=== PATIENT | female | born 1960 | race Caucasian/White ===

== ENCOUNTER 2024-09-04 18:05 | Emergency (ER) | payer SELFPAY ==
--- OUTSIDE RECORDS SUMMARY | 2024-09-04 18:09 | XMS REPORT | Continuity of Care Document ---
Author Name Unknown Address [address] [facility] [address] [place] [address] [facility] Address [address] [facility] [address] [place] [address] Care Team Providers Care Equipment Operator/Laborer Name Role Phone [email or web address] Attending Clinician Unavailable hawk_a Admitting Clinician Unavailable Payers Payer Name Policy Type Policy Number Effective Date Expirati on Date Source Problems Condition Name Condition Details Condition Category Status Onset Date Resolution Date Last Treatment Date Treating Clinician Comments Source Essential hypertensi on Essential Hypertensi on Problem Active - 00:00: 00 [facility] Chronic obstructiv e pulmonary disease Chronic Obstructiv e Pulmonary Disease Problem Active - 00:00: 00 [facility] Low back pain Low Back Pain Problem Active - 00:00: 00 [facility] Pain in right lower limb Pain in Right Lower Limb Problem Active 3- 00:00: 00 [facility] Moderate chronic obstructiv e pulmonary disease Moderate Chronic Obstructiv e Pulmonary Disease Problem Active 5-30 00:00: 00 [facility] Social History Smoking Status Start Date Stop Date Source Heavy Tobacco Smoker [facility] Medications Ordered Medication Name Filled Medication Name Start Date Stop Date Current Medication? Ordering Clinician Indication Dosage Frequency Signature (SIG) Comments Components Source Combivent Respimat 20 mcg-100 mcg/actuati on solution for inhalation Inhale 1 puff 4 times a day by inhalation route as needed. Combivent Respimat 20 mcg-100 mcg/actuati on solution for inhalation Inhale 1 puff 4 times a day by inhalation route as needed. No 1puff(s ) QID Combivent Respimat 20 mcg-100 mcg/actuat ion solution for inhalation Inhale 1 puff 4 times a day by inhalation route as needed. [facility] tizanidine 4 mg tablet Take 1 tablet every 6 hours by oral route. tizanidine 4 mg tablet Take 1 tablet every 6 hours by oral route. No 1 Q6H tizanidine 4 mg tablet Take 1 tablet every 6 hours by oral route. [facility] Vital Signs Vital Name Observation Time Observation Value Comments S ource BP Systolic 2024-08-31 00:00:00 150 mm[Hg] [facility] BP Diastolic 2024-08-31 00:00:00 90 mm[Hg] [facility] BMI (Body Mass Index) 2024-08-31 00:00:00 23.7 kg/m2 [facility] Height 2024-08-31 00:00:00 68 [in_i] [facility] Body Weight 2024-08-31 00:00:00 2499.2 [oz_av] [facility] Procedures Procedure Date / Time Performed Performing Clinician Source XR, lumbar spine, 2 view 2024-08-31 00:00:00 [facility] Cholecystectomy 2023-05-27 00:00:00 [facility] Cystoscopy [facility] To[facility] [employer] [facility] Total Hysterectomy [facility] Encounters Start Date/Time End Date/Time Encounter Type Admission Type Attending Clinicians Care Facility Care Department Encounter ID Source 2024-08-31 00:00:00 2024-08-31 00:00:00 Ruma Hsu MD: Esper[address]sat[address], [address] [place] [address] , Ph. [facility] CLINIC, [address] HSU [id number] [place] [address] 2020-05-11 02:36:00 2020-05-11 02:36:00 Outpatient sarina [facility] [id number] [facility]
[2024-09-04 19:11] LABS: Absolute Lymphocytes (CBC) 0.7 K/uL (0.7-4.9); Absolute Monocytes 0.4 K/uL (0.1-1.3); Absolute Neutrophil 4.8 K/uL (1.8-8.0); Basophils % 0.4 % (0-1.3); Eosinophils % 0.1 % (0-4.4); Hematocrit 44.1 % (36.0-45.0); Hemoglobin 15.2 g/dL (12.0-15.0); Lymphocytes % 11.7 % (15.3-44.8); MCH 31.2 pg (27.0-35.0); MCHC 34.5 g/dL (32.0-36.0); MCV 90.4 fL (80-100); Monocytes % 6.2 % (3.3-12.3); Neutrophils % 81.6 % (41.7-73.7); Platelets 217 thou/uL (152-406); RBC Red Blood Cell Count 4.88 M/uL (3.86-4.86); Red Cell Distribution Width 14.3 % (12.1-15.2)
[2024-09-04 19:16] LABS: PT Prothrombin Time 11.4 SECONDS (10-13.0)
[2024-09-04 19:16] LABS: Specific Gravity 1.013 (1.005-1.030); Sqamous Epithelial <5 /HPF (None Seen); Urine Bacteria None Seen /HPF (<20); Urine Bilirubin NEGATIVE (Negative); Urine Blood 1+ (Negative); Urine Clarity Clear (Clear); Urine Color Light-Yellow (Yellow); Urine Crystals Unidentified Few /HPF (None Seen); Urine Culture Reflex Order NOT NEEDED; Urine Glucose NEGATIVE (Negative); Urine Ketones NEGATIVE (Negative); Urine Micro Reflex YN NO BILL MICROSCOPIC; Urine Mucus Slight /HPF (None Seen); Urine Nitrite NEGATIVE (Negative); Urine Protein NEGATIVE (Negative); Urine RBC <5 /HPF (None Seen); Urine Urobilinogen Normal (Normal); Urine WBC <5 /HPF (<5)
[2024-09-04 19:20] LABS: Influenza A Ag Negative; Influenza B Ag Negative; SARS-CoV-2 Antigen Rapid Res Negative (Negative)
[2024-09-04 19:31] LABS: ALT/SGPT 50 U/L (13-56); AST/SGOT 46 U/L (15-37); Albumin 3.7 g/dL (3.4-5.0); Albumin/Globulin Ratio 0.9 (1.1-1.8); Alkaline Phosphatase 74 U/L (45-117); Anion Gap 6.5 mEq/L (5.0-15.0); BUN Blood Urea Nitrogen 16 mg/dL (7-18); Bicarbonate 27 mEq/L (21-32); Bilirubin Total 0.3 mg/dL (0.2-1.0); Glomerular Filtration Rate 63 ml/min (=/>90); Glucose Level 99 mg/dL (74-106); Magnesium 2.1 mg/dL (1.6-2.4); Potassium 3.5 mEq/L (3.5-5.1); Protein, Total 7.7 g/dL (6.4-8.2); Sodium Level 135 mEq/L (136-145)
[2024-09-04 19:34] LABS: Bilirubin Direct < 0.2 mg/dL (0-0.2); Bilirubin Indirect, Calculated 0.1 mg/dL (0.2-0.8); Troponin High Sensitivity < 3.0 pg/mL (<58.9)
[2024-09-04] MEDS ORDERED: KETOROLAC 30 MG/ML INJ ONE (19:53)
--- NOTE | 2024-09-04 19:58 | RAD REPORT ---
EXAMINATION: TWO VIEW CHEST XR CLINICAL INDICATION: Female, 64 years old. [facility] MAIN COUGH Bed Name: 3 TECHNIQUE: 2 view radiographs of the chest were performed. COMPARISON: No prior exam. FINDINGS: The lungs are well inflated and clear. No pneumothorax or sizable effusion. The heart is normal in si ze. Mediastinal contours are unremarkable. IMPRESSION: No acute or significant abnormalities.
[2024-09-04] MEDS ORDERED: METHOCARBAMOL 1,000 MG/10 ML VIAL ONE (20:52)
[2024-09-04] MEDS ORDERED: NA CHLORIDE 0.9% 100 ML ONE (20:52)
--- NOTE | 2024-09-04 20:55 | RAD REPORT ---
EXAMINATION: CT Abdomen Pelvis W Contrast CLINICAL INDICATION: Female, 64 years old. right flank pain TECHNIQUE: CT abdomen and pelvis was performed, after the administration of IV contrast, as per [facility] protocol. Axial, sagittal and coronal reconstructions were obtained. One or more of the following dose reduction techniques were used: Automated exposure control, adjustment of the mA and k V according to patient size, and iterative reconstruction. Unless otherwise specified, incidental findings do not require dedicated imaging follow-up. COMPARISON: No prior exam. FINDINGS: LOWER CHEST: The visualized lung bases are clear. LIVER: Normal in size and contour. No focal lesion. BILIARY SYSTEM: No suspicious abnormalities. SPLEEN: Normal size. No focal lesion. PANCREAS: No mass, ductal dilation, or sukumar-pancreatic fluid. ADRENALS: Normal; no mass. KIDNEYS: Normal size and contour. 5 mm calculus along the proximal right ureter. No hydronephrosis. URINARY BLADDER: Unremarkable. GASTROINTESTINAL TRACT: No evidence of free air, significant intra-abdominal free fluid, bowel obstru ction or abscess. APPENDIX: Normal appendix. LYMPH NODES: No lymphadenopathy. MUSCULOSKELETAL: No acute or suspicious osseous abnormality. ADDITIONAL FINDINGS: None. IMPRESSION: Right proximal ureter 5 mm calculus, without hydroureteronephrosis. No other acute findings.
--- NOTE | 2024-09-04 21:20 | EDPHYS ---
Physician Documentation [facility] Name: Christi Linares Age: 64 yrs Sex: Female : 1960 Arrival Date: 09/04/2024 Time: 18:05 Bed 20 Private MD: ED Physician Odilon Del Valle HPI: 09/04 18:35 This 64 yrs old Female presents to ER via Ambulatory with complaints of Flu Symptoms. cp 18:35 The patient presents with pain that is acute, with no known mechanism of injury. The cp symptoms are located in the right flank and right mid back. 18:35 Onset: The symptoms/episode began/occurred gradually. intermittent to right leg. cp Associated signs and symptoms: Pertinent positives: bladder incontinence, fatigue, chills, reports not feeling well over past 3 days, Pertinent negatives: chest pain, constipation, dysuria, fever. Severity of symptoms: in the emergency department the symptoms are unchanged, despite home interventions. Historical: - Allergies: 18:21 No Known Allergies; ld1 - Home Meds: 18:21 None [Active]; ld1 - PMHx: 18:21 None; ld1 - PSHx: 18:21 None; ld1 - Immunization history:: Adult Immunizations up to date. - Infectious Disease History:: Denies. - Social history:: Smoking status: Patient reports the use of cigarette tobacco products, smokes one-half pack cigarettes per day. ROS: 18:40 Constitutional: Positive for body aches, fever, Negative for poor PO intake, cp 18:40 Eyes: Negative for injury, pain, redness, and discharge, cp 18:40 ENT: Negative for drainage from ear(s), ear pain, sore throat, difficulty swallowing, difficulty handling secretions, 18:40 Cardiovascular: Negative for chest pain, edema, palpitations, 18:40 Respiratory: Negative for cough, shortness of breath, wheezing, 18:40 Abdomen/GI: Positive for nausea, Negative for vomiting, diarrhea, constipation, 18:40 Back: Positive for pain at rest, pain with movement, flank pain, on the right, radiated pain, 18:40 : Positive for bladder incontinence Negative for hematuria, 18:40 Neuro: Positive for weakness, Negative for altered mental status, 18:40 All other systems are negative, Exam: 18:45 Constitutional: The patient appears in no acute distress, alert, awake, cp non-diaphoretic, non-toxic, well developed, well nourished, 18:45 Head/Face: Normocephalic, atraumatic. cp 18:45 Eyes: Periorbital structures: appear normal, Conjunctiva: normal, no exudate, no injection, Sclera: no appreciated abnormality, Lids and lashes: appear normal, bilaterally, 18:45 ENT: External ear(s): are unremarkable, Nose: is normal, Mouth: Lips: moist, Oral mucosa: pink and intact, moist, Posterior pharynx: Airway: no evidence of obstruction, patent, Tonsils: no enlargement, no exudate, erythema, is not appreciated, exudate, is not appreciated, 18:45 Neck: ROM/movement: is normal, is supple, without pain, no range of motions limitations, no meningismus, 18:45 Chest/axilla: Inspection: normal, 18:45 Cardiovascular: Rate: normal, Rhythm: regular, Edema: is not appreciated, JVD: is not appreciated, 18:45 Respiratory: the patient does not display signs of respiratory distress, Respirations: normal, no use of accessory muscles, no retractions, labored breathing, is not present, Breath sounds: are clear throughout, no decreased breath sounds, no stridor, no wheezing, 18:45 Abdomen/GI: Inspection: abdomen appears normal, Bowel sounds: active, all quadrants, Palpation: soft, in all quadrants, moderate abdominal tenderness, in the posterior aspect of right lateral abdomen and anterior aspect of right lateral abdomen, 18:45 Back: ROM is normal, 18:45 Skin: cellulitis, is not appreciated, no rash present. 18:45 Neuro: Orientation: to person, place \T\ time. Mentation: is normal, Motor: moves all fours, strength is normal, Sensation: no obvious gross deficits, Gait: is steady, at a normal pace, without difficulty, 19:17 ECG was reviewed by the Attending Physician. cp Vital Signs: 18:21 BP 158 / 89; Pulse 83; Resp 18; Temp 98(O); Pulse Ox 100% on R/A; Weight 69.4 kg; ld1 Height 5 ft. 6 in. ; Pain 0/10; 19:30 BP 135 / 85; Pulse 81; Resp 17; Temp 98; Pulse Ox 99% on R/A; Pain 6/10; rg5 21:30 BP 138 / 79; Pulse 84; Resp 17; Pulse Ox 99% on R/A; Pain 0/10; rg5 18:21 Body Mass Index 24.69 (69.40 kg, 167.64 cm) ld1 18:21 Pain Scale: Adult ld1 19:30 Pain Scale: Adult rg5 21:30 Pain Scale: Adult rg5 MDM: 18:28 Medical Screening Exam initiated cp 21:20 Data reviewed: vital signs, nurses notes, lab test result(s), EKG, radiologic studies, cp CT scan, plain films, and as a result, I will discharge patient. 21:20 Differential diagnosis: chronic back pain, Pyelonephritis Ureterolithiasis sepsis. I cp considered the following discharge prescriptions or medication management in the emergency department Medications were administered in the Emergency Department. See MAR. Independent interpretation of the following test(s) in the Emergency Department EKG: See my EKG interpretation above. Counseling: I had a detailed discussion with the patient and/or guardian regarding the historical points, exam findings, and any diagnostic results supporting the discharge/admit diagnosis, lab results, radiology results, the need for outpatient follow up, a urologist, to return to the emergency department if symptoms worsen or persist or if there are any questions or concerns that arise at home. Response to treatment: the patient's symptoms have mildly improved after treatment, and as a result, I will discharge patient. 09/04 18:29 Order name: Basic Metabolic Panel; Complete Time: 19:37 cp 09/04 19:37 Interpretation: Normal except: NA 135; GFR 63. cp 09/04 18:29 Order name: CBC with Diff; Complete Time: 19:37 cp 09/04 19:37 Interpretation: Normal except: RBC 4.88; HGB 15.2; SHELLI% 81.6; LYM% 11.7. cp 09/04 18:29 Order name: LFT's; Complete Time: 19:37 cp 09/04 19:37 Interpretation: Normal except: AST 46; IBILI, CALC 0.1; GLOB 4.0; A/G 0.9. cp 09/04 18:29 Order name: Magnesium; Complete Time: 19:37 cp 09/04 18:29 Order name: PT-INR; Complete Time: 19:37 cp 09/04 18:29 Order name: Troponin HS; Complete Time: 19:37 cp 09/04 18:29 Order name: COVID-19 Ag + Flu A+B Ag; Complete Time: 19:37 cp 09/04 18:30 Order name: Urinalysis W/Microscopic; Complete Time: 19:37 cp 09/04 19:37 Interpretation: Normal except: UBLD 1+. cp 09/04 18:29 Order name: XRAY Chest Pa And Lat (2 Views); Complete Time: 20:37 cp 09/04 20:38 Interpretation: No acute disease: Report reviewed. 09/04 19:42 Order name: CT Abd/Pelvis - IV Contrast Only; Complete Time: 21:10 09/04 21:11 Interpretation: Report reviewed. 09/04 18:29 Order name: Cardiac monitoring; Complete Time: 19:14 cp 09/04 18:29 Order name: EKG - Nurse/Tech; Complete Time: 19:14 cp 09/04 18:29 Order name: IV Saline Lock; Complete Time: 19:00 09/04 18:29 Order name: Labs collected and sent; Complete Time: 19:00 cp 09/04 18:29 Order name: O2 Per Protocol; Complete Time: 19:00 cp 09/04 18:29 Order name: O2 Sat Monitoring; Complete Time: 19:00 cp EC:17 Rate is 79 beats/min. Rhythm is regular. HI interval is normal. QRS interval is cp prolonged at 130 msec. QT interval is normal. T waves are Inverted in leads aVR, V2. Interpreted by me. Reviewed by me. Administered Medications: 20:00 Drug: Ketorolac IVP 15 mg IVP once Route: IVP; Site: right antecubital; rg5 21:54 Follow up: Response: No adverse reaction; Pain is decreased rg5 21:00 Drug: Methocarbamol IVPB 1 grams IVPB once over 1 hrs; (mix in NS 100 mL) Route: IVPB; rg5 Infused Over: 1 hrs; Site: right antecubital; 21:30 Follow up: IV Status: Completed infusion; IV Intake: 100ml rg5 21:42 Drug: Flomax PO 0.4 mg PO once Route: PO; rg5 21:57 Follow up: Response: No adverse reaction rg5 21:42 Drug: Rocephin IV 1 grams IV at calculated rate once; Given slow IV push per pharmacy rg5 instructions Route: IV; Rate: calculated rate; Site: right antecubital; 21:42 Follow up: IV Status: Completed infusion; IV Intake: 20ml rg5 Disposition: 09/05 21:31 Chart complete. cp Disposition Summary: 09/04/24 21:20 Discharge Ordered Notes: Location: Home cp Problem: new cp Symptoms: have improved cp Condition: Stable cp Diagnosis - Dorsalgia, unspecified cp - Calculus of ureter - right cp Followup: cp - With: Zach Aguirre MD - When: 5 - 6 days - Reason: Recheck today's complaints Discharge Instructions: - Discharge Summary Sheet cp - Kidney Stones cp - Musculoskeletal Pain cp - Renal Colic cp - Lithotripsy cp - Back Exercises cp Forms: - Medication Reconciliation Form cp - Antibiotic Education cp - Prescription Opioid Use cp - Patient Portal Instructions cp - Leadership Thank You Letter cp Prescriptions: - Flomax 0.4 mg Oral capsule - take 1 capsule ORAL route daily; 7 capsule; Refills: 0, Product Selection cp Permitted - Cipro 250 mg Oral tablet - take 1 tablet ORAL route every 12 hours for 7 days; 14 tablet; Refills: 0, cp Product Selection Permitted - Ibuprofen 800 mg Oral Tablet - take 1 tablet ORAL route every 8 hours As needed take with food; 30 tablet; cp Refills: 0, Product Selection Permitted - Zofran 4 mg Oral Tablet - take 1 tablet ORAL route every 12 hours As needed; 20 tablet; Refills: 0, cp Product Selection Permitted Signatures: Dispatcher [employer] EDMS Cortez Ragland PA PA cp Jackie Meneses RN RN ld1 John Mendoza RN RN rg5 Corrections: (The following items were deleted from the chart) 09/04 18:29 18:29 BASIC METABOLIC PANEL+C.LAB.BRZ ordered. EDMS EDMS 18:29 18:29 CBC+H.LAB.BRZ ordered. EDMS EDMS 18:29 18:29 HEPATIC FUNCTION+C.LAB.BRZ ordered. EDMS EDMS 18:29 18:29 MAGNESIUM+C.LAB.BRZ ordered. EDMS EDMS 18:29 18:29 PROTIME (+INR)+COAG.LAB.BRZ ordered. EDMS EDMS 18:29 18:29 Troponin High Sensitivity+C.LAB.BRZ ordered. EDMS EDMS 18:29 COVID-19 Ag + Flu A+B Ag+I.LAB.BRZ ordered. EDMS EDMS 30 18:29 Chest Pa And Lat (2 Views)+RAD.RAD.BRZ ordered. EDMS EDMS
--- NOTE | 2024-09-04 21:20 | ER ---
Nurse's Notes [facility] Name: Christi Linares Age: 64 yrs Sex: Female : 1960 Arrival Date: 09/04/2024 Time: 18:05 Bed 20 Private MD: Diagnosis: Dorsalgia, unspecified;Calculus of ureter-right Presentation: 09/04 18:21 Chief complaint: Patient states: Not feeling well. Pt reports feeling fatigue, hot/cold ld1 chills. Pt reports nausea and incontinence X 3 days. Coronavirus screen: At this time, the client does not indicate any symptoms associated with coronavirus-19. Ebola Screen: No symptoms or risks identified at this time. Initial Sepsis Screen: Does the patient meet any 2 criteria? No. Patient's initial sepsis screen is negative. Does the patient have a suspected source of infection? No. Patient's initial sepsis screen is negative. Risk Assessment: Do you want to hurt yourself or someone else? Patient reports no desire to harm self or others. Onset of symptoms was September 04, 2024. 18:21 Method Of Arrival: Ambulatory ld1 18:21 Acuity: PHONG 4 ld1 Triage Assessment: 18:21 General: Appears in no apparent distress. comfortable, Behavior is calm, cooperative, ld1 appropriate for age. Pain: Denies pain. EENT: No signs and/or symptoms were reported regarding the EENT system. Neuro: Level of Consciousness is awake, alert, obeys commands, Oriented to person, place, time, situation. Cardiovascular: Capillary refill < 3 seconds Patient's skin is warm and dry. Respiratory: Airway is patent Respiratory effort is even, unlabored. GI: Abdomen is flat, non-distended. : No signs and/or symptoms were reported regarding the genitourinary system. Derm: Skin temperature is cool. Musculoskeletal: No signs and/or symptoms reported regarding the musculoskeletal system. Historical: - Allergies: 18:21 No Known Allergies; ld1 - Home Meds: 18:21 None [Active]; ld1 - PMHx: 18:21 None; ld1 - PSHx: 18:21 None; ld1 - Immunization history:: Adult Immunizations up to date. - Infectious Disease History:: Denies. - Social history:: Smoking status: Patient reports the use of cigarette tobacco products, smokes one-half pack cigarettes per day. Screenin:45 [facility] ED Fall Risk Assessment (Adult) History of falling in the last 3 months, me1 including since admission No falls in past 3 months (0 pts) Confusion or Disorientation No (0 pts) Intoxicated or Sedated No (0 pts) Impaired Gait No (0 pts) Mobility Assist Device Used No (0 pt) Altered Elimination No (0 pt) Score/Fall Risk Level 0 - 2 = Low Risk Maintained a safe environment, Provided non-skid footwear, Hourly rounding (assess needs \T\ fall precautionary measures) done. Abuse screen: Denies threats or abuse. Nutritional screening: No deficits noted. Tuberculosis screening: No symptoms or risk factors identified. Assessment: 18:45 General: Appears uncomfortable, ill, Behavior is calm, cooperative, appropriate for me1 age, Reports Not feeling well. Pt reports feeling fatigue, hot/cold chills. Pt reports nausea and incontinence X 3 days. Pain: Denies pain. Neuro: Level of Consciousness is awake, alert, obeys commands, Oriented to person, place, time, situation, Appropriate for age. Cardiovascular: Patient's skin is warm and dry. Respiratory: Airway is patent Respiratory effort is even, unlabored, Respiratory pattern is regular, symmetrical. GI: Reports nausea, since 3 days ago. : Reports incontinence, since 3 days ago. EENT: No signs and/or symptoms were reported regarding the EENT system. Derm: Skin is intact, is healthy with good turgor, Skin is normal. Musculoskeletal: No signs and/or symptoms reported regarding the musculoskeletal system. Vital Signs: 18:21 BP 158 / 89; Pulse 83; Resp 18; Temp 98(O); Pulse Ox 100% on R/A; Weight 69.4 kg; ld1 Height 5 ft. 6 in. ; Pain 0/10; 19:30 BP 135 / 85; Pulse 81; Resp 17; Temp 98; Pulse Ox 99% on R/A; Pain 6/10; rg5 21:30 BP 138 / 79; Pulse 84; Resp 17; Pulse Ox 99% on R/A; Pain 0/10; rg5 18:21 Body Mass Index 24.69 (69.40 kg, 167.64 cm) ld1 18:21 Pain Scale: Adult ld1 19:30 Pain Scale: Adult rg5 21:30 Pain Scale: Adult rg5 ED Course: 18:08 Patient arrived in ED. al6 18:16 Cortez Ragland PA is PHCP. cp 18:16 Odilon Del Valle MD is Attending Physician. cp 18:21 Arm band placed on right wrist. ld1 18:22 Triage completed. ld1 18:39 Nahomy Millard, RN is Primary Nurse. me1 18:45 Patient has correct armband on for positive identification. Bed in low position. Call nc1 light in reach. Side rails up X 1. Provided Education on: POC. Verbalized understanding.. Client placed on continuous cardiac and pulse oximetry monitoring. NIBP monitoring applied. insurance licensing supervisor on. Pulse ox on. NIBP on. 18:45 No provider procedures requiring assistance completed. me1 18:49 XRAY Chest Pa And Lat (2 Views) In Process Unspecified. EDMS 19:00 Initial lab(s) drawn, by nc, sent to lab. Inserted saline lock: 22 gauge in right [facility] antecubital area, using aseptic technique. 19:00 COVID-19 Ag + Flu A+B Ag Sent. me1 19:00 Basic Metabolic Panel Sent. me1 19:00 CBC with Diff Sent. me1 19:00 LFT's Sent. me1 19:00 Magnesium Sent. me1 19:00 PT-INR Sent. me1 19:00 Troponin HS Sent. me1 19:14 EKG done, by electronic warfare technician. af3 19:59 CT Abd/Pelvis - IV Contrast Only In Process Unspecified. EDMS 21:19 Zach Aguirre MD is Referral Physician. cp 21:56 IV discontinued, bleeding controlled, No redness/swelling at site. Pressure dressing rg5 applied. Administered Medications: 20:00 Drug: Ketorolac IVP 15 mg IVP once Route: IVP; Site: right antecubital; rg5 21:54 Follow up: Response: No adverse reaction; Pain is decreased rg5 21:00 Drug: Methocarbamol IVPB 1 grams IVPB once over 1 hrs; (mix in NS 100 mL) Route: IVPB; rg5 Infused Over: 1 hrs; Site: right antecubital; 21:30 Follow up: IV Status: Completed infusion; IV Intake: 100ml rg5 21:42 Drug: Flomax PO 0.4 mg PO once Route: PO; rg5 21:57 Follow up: Response: No adverse reaction rg5 21:42 Drug: Rocephin IV 1 grams IV at calculated rate once; Given slow IV push per pharmacy rg5 instructions Route: IV; Rate: calculated rate; Site: right antecubital; 21:42 Follow up: IV Status: Completed infusion; IV Intake: 20ml rg5 Medication: 18:45 VIS not applicable for this client. me1 Intake: 21:30 IV: 100ml; Total: 100ml. rg5 21:42 IV: 20ml; Total: 120ml. rg5 Outcome: 21:20 Discharge ordered by MD. cp 21:56 Discharged to home ambulatory, rg5 21:56 Condition: stable 21:56 Discharge instructions given to patient, family, Instructed on discharge instructions, follow up and referral plans. Demonstrated understanding of instructions, follow-up care, Prescriptions given X 4, 21:57 Patient left the ED. rg5 Signatures: Dispatcher [employer] EDMS Cortez Ragland PA PA cp Jackie Meneses RN RN ld1 Nahomy Millard RN RN me1 John Mendoza RN RN rg5 Herlinda Black af3 Hiral Zhang6 Corrections: (The following items were deleted from the chart) 18:24 18:21 Chief complaint: Patient states: Not feeling well. Pt reports feeling fatigue, ld1 hot/cold chills. ld1 18:48 18:21 Chief complaint: Patient states: Not feeling well. Pt reports feeling fatigue, me1 hot/cold chills. Pt reports nausea and incontinence X 3 days ld1 19:05 18:21 Chief complaint: Patient states: Not feeling well. Pt reports feeling fatigue, me1 hot/cold chills. Pt reports nausea and incontinence X 3 days me1
[2024-09-04] MEDS ORDERED: CEFTRIAXONE 1000 MG/VIAL ONE (21:44)
[2024-09-04] MEDS ORDERED: TAMSULOSIN 0.4 MG SR CAP ONE (21:44)
[2024-09-04 22:08] VITALS: TEMP 98
[2024-09-04 22:09] VITALS: O2SAT 99
[2024-09-04 22:10] VITALS: BP 138/79
== END 2024-09-04 21:57 | disposition home or self-care (01) ==
LOC: ER 18:05
DX: M54.9 Dorsalgia, unspecified (principal); N20.1 Calculus of ureter; Z72.0 Tobacco use
CPT/HCPCS: 36415; 71046; 74177; 80048; 80076; 81001; 83735; 84484; 85025; 85610; 87428; 93005; 96365; 96375; 99285; J0696; J2800; Q9967

== ENCOUNTER 2024-11-06 11:50 | Emergency (ER) | payer OTHER ==
--- NOTE | 2024-11-06 14:29 | RAD REPORT ---
EXAM: Chest Single View HISTORY: 64 years Female weakness COMPARISON: 09/04/2024 FINDINGS: LUNGS/PLEURA: The lungs are clear. No pleural effusions or pneumothorax. No pulmonary edema. CARDIAC/MEDIASTINUM: The cardiac silhouette is within normal limits. UPPER ABDOMEN: No significant abnormality. BONES: No acute abnormality. LINES/TUBES/OTHER: N/A IMPRESSION: No evidence of acute cardiopulmonary disease. No significant change from prior.
[2024-11-06 15:12] LABS: Absolute Basophils 0.1 K/uL (0-0.5); Absolute Lymphocytes (CBC) 1.8 K/uL (0.7-4.9); Absolute Monocytes 1.2 K/uL (0.1-1.3); Absolute Neutrophil 7.4 K/uL (1.8-8.0); Basophils % 0.6 % (0-1.3); Eosinophils % 0.4 % (0-4.4); Hematocrit 41.4 % (36.0-45.0); Hemoglobin 14.2 g/dL (12.0-15.0); Lymphocytes % 17.5 % (15.3-44.8); MCH 31.5 pg (27.0-35.0); MCHC 34.4 g/dL (32.0-36.0); MCV 91.6 fL (80-100); MPV 8.2 fL (7.6-11.3); Neutrophils % 70.5 % (41.7-73.7); Platelets 285 thou/uL (152-406); RBC Red Blood Cell Count 4.52 M/uL (3.86-4.86); Red Cell Distribution Width 15.1 % (12.1-15.2)
[2024-11-06 15:26] LABS: ALT/SGPT 18 U/L (13-56); Albumin 3.7 g/dL (3.4-5.0); Albumin/Globulin Ratio 0.9 (1.1-1.8); Alkaline Phosphatase 67 U/L (45-117); BUN Blood Urea Nitrogen 17 mg/dL (7-18); Bicarbonate 25 mEq/L (21-32); Bilirubin Total 0.4 mg/dL (0.2-1.0); Globulin 3.9 g/dL (2.3-3.5); Glomerular Filtration Rate 71 ml/min (=/>90); Glucose Level 109 mg/dL (74-106); Magnesium 2.2 mg/dL (1.6-2.4); Protein, Total 7.6 g/dL (6.4-8.2); Sodium Level 136 mEq/L (136-145); Troponin High Sensitivity 3.6 pg/mL (<58.9)
[2024-11-06 16:02] LABS: AST/SGOT < 10 U/L (15-37); Bilirubin Direct < 0.2 mg/dL (0-0.2); Bilirubin Indirect, Calculated 0.2 mg/dL (0.2-0.8)
--- NOTE | 2024-11-06 16:40 | ER ---
Nurse's Notes [facility] Name: Christi Linares Age: 64 yrs Sex: Female : 1960 Arrival Date: 11/06/2024 Time: 11:50 Bed 6 Private MD: Diagnosis: Weakness Presentation: 11/06 12:07 Chief complaint: Patient states: Lithotripsy with right renal stent placed on 11/03/24 jl7 at [facility]. Reports feeling weak and ill, reports chills last night. Coronavirus screen: At this time, the client does not indicate any symptoms associated with coronavirus-19. Ebola Screen: No symptoms or risks identified at this time. Initial Sepsis Screen: Does the patient meet any 2 criteria? No. Patient's initial sepsis screen is negative. Does the patient have a suspected source of infection? No. Patient's initial sepsis screen is negative. Risk Assessment: Do you want to hurt yourself or someone else? Patient reports no desire to harm self or others. Onset of symptoms is unknown. 12:07 Method Of Arrival: Ambulatory jl7 12:07 Acuity: PHONG 3 jl7 Triage Assessment: 12:11 General: Appears in no apparent distress. uncomfortable, Behavior is calm, cooperative, jl7 appropriate for age. Pain: Denies pain. Historical: - Allergies: 12:11 No Known Allergies; jl7 - Home Meds: 12:11 None [Active]; jl7 - PMHx: 12:11 None; jl7 - Immunization history:: Adult Immunizations unknown. - Infectious Disease History:: Denies. - Social history:: Smoking status: Patient reports the use of cigarette tobacco products, smokes one pack cigarettes per day. Screenin:03 [facility] ED Fall Risk Assessment (Adult) History of falling in the last 3 months, ph including since admission No falls in past 3 months (0 pts) Confusion or Disorientation No (0 pts) Intoxicated or Sedated No (0 pts) Impaired Gait No (0 pts) Mobility Assist Device Used No (0 pt) Altered Elimination No (0 pt) Score/Fall Risk Level 0 - 2 = Low Risk Oriented to surroundings, Maintained a safe environment, Hourly rounding (assess needs \T\ fall precautionary measures) done, Used ambulatory aids as needed (educated on \T\ assisted with). Abuse screen: Denies threats or abuse. Denies injuries from another. Nutritional screening: No deficits noted. Tuberculosis screening: No symptoms or risk factors identified. Assessment: 15:02 General: Appears in no apparent distress. comfortable, well groomed, Behavior is calm, ph cooperative, appropriate for age, Reports chills for 12-24 hours. Pain: Complains of pain in suprapubic area, right lower quadrant and left lower quadrant. Neuro: Level of Consciousness is awake, alert, obeys commands, Oriented to person, place, time, situation. Cardiovascular: Capillary refill < 3 seconds in bilateral fingers Patient's skin is warm and dry. Respiratory: Airway is patent Respiratory effort is even, unlabored. GI: Abdomen is round non-distended, Reports lower abdominal pain. Derm: Skin is pink, warm \T\ dry. Musculoskeletal: Circulation, motion, and sensation intact. Range of motion: intact in all extremities. 16:10 Reassessment: Patient appears in no apparent distress at this time. Patient and/or ph family updated on plan of care and expected duration. Pain level reassessed. Patient is alert, oriented x 3, equal unlabored respirations, skin warm/dry/pink. Pt on telephone yelling, saying she is ready to go home. 16:40 Reassessment: PT REFUSING CT, REFUSING FURTHER EVAL AND TO WAIT FOR RESULTS AND DISPO. bp URGED TO REMAIN BY ERP BUT REFUSED. Vital Signs: 12:07 BP 148 / 88; Pulse 94; Resp 15; Temp 98.3; Pulse Ox 97% ; Weight 68.95 kg; Height 5 ft. jl7 7 in. ; Pain 0/10; 15:03 BP 129 / 90; Pulse 81; Resp 18; Pulse Ox 100% on R/A; ph 12:07 Body Mass Index 23.81 (68.95 kg, 170.18 cm) jl7 12:07 Pain Scale: Adult jl7 ED Course: 11:52 Patient arrived in ED. mr 12:11 Triage completed. jl7 12:11 Arm band placed on right wrist. jl7 13:07 Cortez Ragland PA is PHCP. cp 13:07 Ash Mathews MD is Attending Physician. cp 13:56 XRAY Chest (1 view) In Process Unspecified. EDMS 14:32 Judy Arzola, RN is Primary Nurse. ph 15:01 Basic Metabolic Panel Sent. ph 15:01 CBC with Diff Sent. ph 15:01 LFT's Sent. ph 15:01 Magnesium Sent. ph 15:01 PT-INR Sent. ph 15:01 Troponin HS Sent. ph 15:01 Lactate w/ 2H reflex if indic. Sent. ph 15:01 Initial lab(s) drawn, by me, sent to lab. EKG done, by ED staff, reviewed by Cortez ZARAGOZA. Inserted saline lock: 22 gauge in left antecubital area, using aseptic technique. Blood collected. Flushed with 10 mL NS. 15:03 Patient has correct armband on for positive identification. Bed in low position. Call ph light in reach. Side rails up X 1. Pulse ox on. NIBP on. Door closed. Noise minimized. 16:11 No provider procedures requiring assistance completed. ph 16:40 IV discontinued, intact, bleeding controlled, No redness/swelling at site. Pressure bp dressing applied. Administered Medications: No medications were administered Medication: 15:03 VIS not applicable for this client. ph Outcome: 16:40 Discharge ordered by MD. cp 16:40 Discharged to home ambulatory, with family, bp 16:40 Condition: stable 16:40 Discharge instructions given to patient, Instructed on discharge instructions, follow up and referral plans. 16:41 Patient left the ED. bp Signatures: Dispatcher [employer] EDNC Sivan Espinosa, Reg Reg Judy Arzola, RN RN Cortez Viera PA PA cp Leal, Jahala, RN RN jlTres Higgins RN RN bp Corrections: (The following items were deleted from the chart) 16:11 16:10 Reassessment: Pt on telephone yelling, saying she is ready to go home ph ph 16:41 16:40 Discharged to bp bp
--- NOTE | 2024-11-06 16:40 | EDPHYS ---
Physician Documentation [facility] Name: Christi Linares Age: 64 yrs Sex: Female : 1960 Arrival Date: 11/06/2024 Time: 11:50 Bed 6 Private MD: ED Physician Ash Mathews HPI: 11/06 13:20 This 64 yrs old Female presents to ER via Ambulatory with complaints of Weakness. cp 13:20 The patient presents to the emergency department with weakness of the entire body, cp generalized weakness, that is mild. 13:20 Onset: The symptoms/episode began/occurred last night. cp 13:20 Patient's baseline: Neuro: alert and fully oriented, Motor: no deficits, Ambulation: cp walks without assistance, Speech: normal. Historical: - Allergies: 12:11 No Known Allergies; jl7 - Home Meds: 12:11 None [Active]; jl7 - PMHx: 12:11 None; jl7 - Immunization history:: Adult Immunizations unknown. - Infectious Disease History:: Denies. - Social history:: Smoking status: Patient reports the use of cigarette tobacco products, smokes one pack cigarettes per day. ROS: 13:25 Constitutional: Positive for chills, Negative for body aches, fever, poor PO intake, cp 13:25 Eyes: Negative for injury, pain, redness, and discharge, cp 13:25 ENT: Negative for drainage from ear(s), ear pain, sore throat, difficulty swallowing, difficulty handling secretions, 13:25 Cardiovascular: Negative for chest pain, edema, palpitations, 13:25 Respiratory: Positive for cough, Negative for shortness of breath, wheezing, 13:25 Abdomen/GI: Negative for abdominal pain, vomiting, diarrhea, constipation, 13:25 Neuro: Positive for weakness, Negative for altered mental status, dizziness, headache, syncope, 13:25 All other systems are negative, Exam: 13:30 Constitutional: The patient appears in no acute distress, alert, awake, cp non-diaphoretic, non-toxic, well developed, well nourished, 13:30 Head/Face: Normocephalic, atraumatic. cp 13:30 Eyes: Periorbital structures: appear normal, Conjunctiva: normal, no exudate, no injection, Sclera: no appreciated abnormality, Lids and lashes: appear normal, bilaterally, 13:30 ENT: External ear(s): are unremarkable, Nose: is normal, Mouth: Lips: moist, Oral mucosa: moist, Posterior pharynx: Airway: no evidence of obstruction, patent, 13:30 Chest/axilla: Inspection: normal, 13:30 Cardiovascular: Rate: normal, Rhythm: regular, 13:30 Respiratory: the patient does not display signs of respiratory distress, Respirations: normal, no use of accessory muscles, no retractions, labored breathing, is not present, Breath sounds: are clear throughout, no decreased breath sounds, no stridor, no wheezing, 13:30 Abdomen/GI: Inspection: abdomen appears normal, Palpation: abdomen is soft and non-tender, in all quadrants, 13:30 Back: pain, is absent, ROM is normal, 13:30 Neuro: Orientation: to person, place \T\ time. Mentation: is normal, Cerebellar function: is grossly normal, Motor: moves all fours, strength is normal, Sensation: is normal, Gait: is steady, at a normal pace, without difficulty, 14:53 ECG was reviewed by the Attending Physician. Vital Signs: 12:07 BP 148 / 88; Pulse 94; Resp 15; Temp 98.3; Pulse Ox 97% ; Weight 68.95 kg; Height 5 ft. jl7 7 in. ; Pain 0/10; 15:03 BP 129 / 90; Pulse 81; Resp 18; Pulse Ox 100% on R/A; ph 12:07 Body Mass Index 23.81 (68.95 kg, 170.18 cm) jl7 12:07 Pain Scale: Adult jl7 MDM: 13:08 Medical Screening Exam initiated cp 16:15 Data reviewed: vital signs, nurses notes, lab test result(s), EKG. 16:38 ED course: patient requesting discharge prior to results of urinalysis. 11/06 13:19 Order name: Basic Metabolic Panel; Complete Time: 16:10 11/06 16:10 Interpretation: Normal except: GLUC 109; GFR 71. 11/06 13:19 Order name: CBC with Diff; Complete Time: 15:45 11/06 13:19 Order name: LFT's; Complete Time: 16:10 11/06 13:19 Order name: Magnesium; Complete Time: 16:10 11/06 13:19 Order name: PT-INR 11/06 13:19 Order name: Troponin HS; Complete Time: 16:10 11/06 13:19 Order name: Lactate w/ 2H reflex if indic.; Complete Time: 16:10 11/06 16:11 Order name: UA Rfx Kael Cult if indicated; Complete Time: 03:02 11/07 03:03 Interpretation: Reviewed. 11/06 13:19 Order name: XRAY Chest (1 view); Complete Time: 15:45 11/06 13:19 Order name: Cardiac monitoring; Complete Time: 14:52 11/06 13:19 Order name: EKG - Nurse/Tech; Complete Time: 14:52 11/06 13:19 Order name: IV Saline Lock; Complete Time: 15:01 11/06 13:19 Order name: Labs collected and sent; Complete Time: 15:01 11/06 13:19 Order name: O2 Per Protocol; Complete Time: 14:36 11/06 13:19 Order name: O2 Sat Monitoring; Complete Time: 14:36 cp EC:53 Rate is 83 beats/min. Rhythm is regular. AK interval is normal. QRS interval is cp prolonged at 128 msec. QT interval is normal. T waves are Inverted in leads aVR, V2, V3. Interpreted by me. Reviewed by me. Administered Medications: No medications were administered Disposition: 16:44 Co-signature as Attending Physician, Ash Mathews MD I reviewed the patient's care rt provided by the Advanced Practice Provider and agree with the diagnosis and treatment plan. Disposition Summary: 11/06/24 16:40 Discharge Ordered Notes: Location: Home cp Problem: new cp Symptoms: are unchanged cp Condition: Stable cp Diagnosis - Weakness cp Followup: cp - With: Private Physician - When: As needed - Reason: Worsening of condition Discharge Instructions: - Discharge Summary Sheet cp - Weakness cp Forms: - Medication Reconciliation Form cp - Antibiotic Education cp - Prescription Opioid Use cp - Patient Portal Instructions cp - Leadership Thank You Letter cp Addendum: 11/07/2024 17:27 Addendum: attempt to call number listed in chart but is disconnected and no answer. c p Signatures: Dispatcher [employer] EDMS Cortez Ragland PA PA cp Leal, Jahala, RN RN jl7 Ash Mathews MD MD rt Corrections: (The following items were deleted from the chart) 11/06 13:20 13:19 BASIC METABOLIC PANEL+C.LAB.BRZ ordered. EDMS EDMS 13:20 13:19 CBC+H.LAB.BRZ ordered. EDMS EDMS 13:20 13:19 HEPATIC FUNCTION+C.LAB.BRZ ordered. EDMS EDMS 13:20 13:19 MAGNESIUM+C.LAB.BRZ ordered. EDMS EDMS 13:20 13:19 PROTIME (+INR)+COAG.LAB.BRZ ordered. EDMS EDMS 13:20 13:19 Troponin High Sensitivity+C.LAB.BRZ ordered. EDMS EDMS 13:20 13:19 LACTATE+C.LAB.BRZ ordered. EDMS EDMS 13:20 13:20 Chest Single View+RAD.RAD.BRZ ordered. EDMS EDMS 16:17 16:17 Head Brain Wo Cont+CT.RAD.BRZ ordered. EDMS EDMS
[2024-11-06 17:01] VITALS: TEMP 98.3
[2024-11-06 17:04] LABS: Specific Gravity 1.008 (1.005-1.030); Sqamous Epithelial <5 /HPF (None Seen); Urine Bacteria None Seen /HPF (<20); Urine Bilirubin 1+ (Negative); Urine Blood 3+ (Negative); Urine Clarity Turbid (Clear); Urine Color Dark-Yellow (Yellow); Urine Crystals Unidentified Few /HPF (None Seen); Urine Culture Reflex Order REFLEXED; Urine Glucose NEGATIVE (Negative); Urine Ketones NEGATIVE (Negative); Urine Microscopic Reflex YN ORDER UMIC; Urine Mucus Slight /HPF (None Seen); Urine Nitrite 1+ (Negative); Urine Protein TRACE (Negative); Urine RBC >50 /HPF (None Seen); Urine Urobilinogen 1+ (Normal); Urine pH 6.5 (5.0-7.0)
[2024-11-06 17:07] VITALS: BP 129/90; O2SAT 100
[2024-11-07 11:33] LABS: PT Prothrombin Time 11.8 SECONDS (10-13.0); Protime INR 1.04
== END 2024-11-06 16:41 | disposition home or self-care (01) ==
LOC: ER 11:50
DX: R53.1 Weakness (principal); F17.210 Nicotine dependence, cigarettes, uncomplicated
CPT/HCPCS: 36415; 71045; 80048; 80076; 81001; 83605; 83735; 84484; 85025; 85610; 87086; 87088; 99284